=== PATIENT | male | born 1970 ===

== ENCOUNTER 2023-04-07 05:59 | Day surgery (SDC) | payer OTHER ==
[~2023-04-07] VITALS: Ht 167.6 cm; Wt 111.3 kg
[2023-04-07] VITALS (13 sets, daily range): BP systolic 112–184; BP diastolic 68–119
[2023-04-07] MEDS ORDERED: ACET500 (06:41)
--- NOTE | 2023-04-07 07:25 | NUR ---
Ambulatory in Day Surgery Patient confirms NPO status and agrees with scheduled surgery. Pre-Op teaching done. Pt verbalizes understanding. History, Chart, Medications and Allergies reviewed before start of procedure.Patient States Post-Procedure ride home has been arranged.
--- NOTE | 2023-04-07 07:30 | NUR ---
0710 PT W/ DBP IN THE 1-TEENS, PT SAYS HE HAS HIGH BP BUT HAS CHOSEN NOT TO TAKE MEDS FOR IT. HE SAYS THE LAST TIME HE HAD IT TAKEN "A FEW WEEKS AGO THE BOTTOM NUMBER WAS 70 OR 80 [address]ING" BOTH DR. GRAHAM AND DR. SILVER AWARE
--- NOTE | 2023-04-07 11:01 | NUR ---
DISCUSSED PT'S ELEVATED BP WITH DR SILVER, HE IS AWARE AND DOES NOT WANT TO TREAT IT AT THIS TIME, HE WOULK LIKE THE PT TO BE ADVISED TO FOLLOW UP WITH HIS PCP
--- NOTE | 2023-04-07 11:19 | NUR ---
Discharge instructions reviewed with patient. Patient verbalizes understanding. Copy given to patient to take home.
--- NOTE | 2023-04-07 11:19 | NUR ---
PT COUNCELED ON FOLLOWING UP WITH PCP REGAREDING HIGH BLOOD PRESSURE, PT ACKNOLWEDGED INSTRUCTIONS AND AGREES TO FOLLOW UP
--- NOTE | 2023-04-07 11:50 | NUR ---
Dressing to procedure site clean, dry, intact with no visible drainage, swelling, erythema or bruising noted. Discharged via wheelchair to private car for ride home.
== END 2023-04-07 11:55 | disposition home or self-care (01) ==
LOC: ORSCMMR 05:59 → ORD 05:59 → ORSCMMR 06:00 → ORD 06:03 → ORSCMMR 06:03 → ORD 07:30 → ORSCMMR 11:55 → ORD 11:55
PROVIDERS: Surgery
PROC: 0WUF4JZ Supplement Abdominal Wall with Synthetic Substitute, Percutaneous Endoscopic Approach (ICD-10-PCS; principal; 2023-04-07 07:30)
DX: K42.0 Umbilical hernia with obstruction, without gangrene (principal); K43.6 Other and unspecified ventral hernia with obstruction, without gangrene; K66.0 Peritoneal adhesions (postprocedural) (postinfection); G47.33 Obstructive sleep apnea (adult) (pediatric); E66.9 Obesity, unspecified; Z68.39 Body mass index [BMI] 39.0-39.9, adult
CPT/HCPCS: A9270; C1781; J0690; J1100; J1170; J1885; J2250; J2405; J2704; J3010; J7120